=== PATIENT | female | born 1975 | race Two or more races ===

== ENCOUNTER 2021-10-11 09:25 | Emergency (ER) | payer OTHER ==
[~2021-10-11] VITALS: Ht 160 cm; Wt 91.6 kg
[2021-10-11] MEDS ORDERED: COZAAR100 MG PO (10:14)
[2021-10-11] MEDS ORDERED: FLECAINIDE ACET50 MG PO (10:14)
== END 2021-10-11 15:30 | disposition home or self-care (01) ==
LOC: ER 09:25
DX: I48.91 Unspecified atrial fibrillation (principal)